=== PATIENT | female | born 1955 | race Two or more races ===

== ENCOUNTER 2020-10-13 11:23 | Inpatient (IN) | payer MEDICARE, OTHER ==
[~2020-10-13] VITALS: Ht 165.1 cm; Wt 49.9 kg
--- NOTE | 2020-10-13 12:25 | NUR ---
IGNITER CAPPER NOTE- PT ARRIVED TO UNIT ON GURNEY FROM ED. ON FACE TO FACE ASSESSMENT PT PRESENTS ALERT ORIENTED TO PERSON PLACE PURPOSE. PT CURRENTLY ON 5150 HOLD DTS. PT WAS "RUNNING IN TRAFFIC" TOX SCREEN POS FOR AMPHETAMINES AND CANNIBIS. PT STATES "I WAS WALKING IN THE ROAD BUT DIDN'T WANT TO KILL MYSELF " PT DENIES SI HI AH VH. VS FOLLOWS - BP- 130/77, HR- 84, RR- 18, T- 97.8, SATS 97% RA, ACCU CHECK BS- 93. SKIN INTACT THROUGHOUT, NO MEDICAL HX . PT DENIES PAST HOSPITALIZATIONS OR MEDICAL ISSUES. LABS ON ARRIVAL FROM ED ARE WNL. PT IS 5'5" AND 110 POUNDS. PERSONAL BELONGINGS INVENTORIES AND STORED IN LOCKER. PT RIGHT HANDBOOK GIVEN ,. UNIT ORIENTATION DONE. PT HAD FLU VACCINE IN JULY. DENIES PNA VACCINE AND REFUSES. LUNCH BROUGHT FOR PT. MD AWARE OF ADMISSION. ORDERS RECEIVED AND COMPLIED WITH.
[2020-10-13 12:45] VITALS: BP 130/77
[2020-10-13] MEDS ORDERED: MAGNESIUM HYDROXIDE 30 ML UDC PO PRN (13:00)
[2020-10-13] MEDS ORDERED: BLOOD SUGAR DIAGNOSTIC 1 EACH STRIP IN ONE (13:00)
[2020-10-13] MEDS ORDERED: MAG HYDROX/AL HYDROX/SIMETH 30 ML UDC PO PRN (13:00)
[2020-10-13] MEDS ORDERED: TEMAZEPAM 7.5 MG CAPSULE PO PRN (13:00)
[2020-10-13 15:59] VITALS: BP 127/75
[2020-10-13] MEDS: ARIPIPRAZOLE 5 MG TABLET PO SCH (17:22)
[2020-10-13 20:28] VITALS: BP 139/75
[2020-10-13] MEDS ORDERED: ARIPIPRAZOLE 5 MG TABLET PO SCH (22:00)
[2020-10-14 07:46] LABS: ALBUMIN 3.2 g/dL (3.4-5.0); BILIRUBIN,TOTAL 0.4 mg/dL (0.2-1.0); CALCIUM, SERUM 9.3 mg/dL (8.5-10.1); CHOLESTEROL 137 mg/dL (<200); CREATININE 0.8 mg/dL (0.6-1.3); HDL CHOLESTEROL 45 mg/dL (40-60); LDL 68 mg/dL (0-99); POTASSIUM 4.5 mmol/L (3.5-5.1); TRIGLYCERIDES 143 mg/dL (30-150)
[2020-10-14 08:00] VITALS: BP 133/80
[2020-10-14] MEDS: ARIPIPRAZOLE 5 MG TABLET PO SCH ×2 (08:24→17:16)
--- NOTE | 2020-10-14 09:00 | NUR ---
RN NOTE- IRRITABLE AND OFFENSIVE AT TIMES. WALKS INTO HALLS NAKED, REDIRECTABLE BUT USES PROFANITY TOWARDS STAFF PT ALERT ORIENTED TO PERSON PLACE PURPOSE, DENIES SI HI AH VH, PO INTAKE GOOD
--- NOTE | 2020-10-14 12:46 | NUR ---
RN NOTE- PT INAPPROPRIATENESS CONTINUES SHE WALKS IN [place] IN UNDERWEAR, SWEARS AT STAFF WHEN SHE DOESN'T IMMEDIATELY GET WHAT SHE ASKS FOR, AND IS GENERALLY UNPLEASANT TO STAFF. REDIRECTED. REORIENTATION.
[2020-10-14 16:00] VITALS: BP 126/74
[2020-10-14] MEDS: DIVALPROEX SODIUM 125 MG CAP.SPRINK PO SCH (17:16)
[2020-10-15 08:00] VITALS: BP 123/78
[2020-10-15] MEDS: ARIPIPRAZOLE 5 MG TABLET PO SCH ×2 (08:39→17:31)
[2020-10-15] MEDS: DIVALPROEX SODIUM 125 MG CAP.SPRINK PO SCH ×3 (08:39→17:35)
[2020-10-15] MEDS: ACETAMINOPHEN 325 MG TABLET PO PRN (10:39)
--- NOTE | 2020-10-15 10:51 | NUR ---
SNI MS: TYLENOL IS GIVEN DUE TO COMPLAIN OF HEADACHE 12/10
[2020-10-15 16:00] VITALS: BP 120/64
[2020-10-15 20:27] VITALS: BP 128/70
[2020-10-16 08:00] VITALS: BP 118/71
[2020-10-16] MEDS: ARIPIPRAZOLE 5 MG TABLET PO SCH ×2 (09:07→16:40)
[2020-10-16] MEDS: ACETAMINOPHEN 325 MG TABLET PO PRN ×2 (09:07→11:32)
[2020-10-16] MEDS: DIVALPROEX SODIUM 125 MG CAP.SPRINK PO SCH ×3 (09:07→16:40)
[2020-10-16] MEDS: clonazePAM 0.5 MG TABLET PO PRN ×2 (09:07→18:12)
--- NOTE | 2020-10-16 09:12 | NUR ---
MARIANCO: SAIMA GIVEN FOR DISROBING IN THE [place] and SCREAMING.
--- NOTE | 2020-10-16 12:10 | NUR ---
Substance Abuse Intervention: SW conducted a substance abuse intervention with the pt due to her methamphetamine use.
--- NOTE | 2020-10-16 13:37 | NUR ---
PC Hearing: Pts [id number] hold was upheld for danger to herself and grave disability.
--- NOTE | 2020-10-16 13:37 | NUR ---
Initial Discharge Plan: Pt is currently homeless. Per pt, she would like to return to [place] where she sleeps on a boat. DIANA will work with the pt and the pts MD regarding appropriate discharge planning. SW will form a safe and proper discharge.
--- NOTE | 2020-10-16 19:30 | NUR ---
GPS RN NOTE, RECEIVED PATIENT AWAKE AND IN BED, NO S/S OR COMPLAINTS OF PAIN AT THIS TIME. PATIENT IS DISPLAYING NO S/S OF APPARENT DISTRESS AT THIS TIME. PATIENT BREATHING IS UNLABORED WITH EQUAL RISE AND FALL OF THE CHEST. PATIENT IS ALERT AND ORIENTED X 3-4 ON ROOM AIR WITH A SPO2 95%. PATIENT IS COMPLIANT WITH MEDICATIONS, ANXIOUS AT TIMES, MANIPULATIVE, VERBALLY ABUSIVE AT TIMES, NEEDS REDIRECTION, AND COOPERATIVE. PATIENT DENIES SUICIDAL AND HOMICIDAL IDEATIONS AT THIS TIME. PATIENT ASSISTED WITH TURNING AND REPOSITIONING Q2HR AND PRN FOR COMFORT AND CIRCULATION. PATIENT HAS NO NEEDS AT THIS TIME. PATIENT EDUCATED ON THE USE OF THE CALL HARTMANN. PATIENT BED SIDE RAILS UP X 2 FOR SAFETY. PATIENT BED IS LOCKED, LOW, WITH BED ALARM ON. WILL CONTINUE TO MONITOR THIS PATIENT Q15 MINUTES WITH THE HELP OF STAFF TO MAINTAIN SAFETY.
[2020-10-16 19:48] VITALS: BP 105/63
[2020-10-17 08:00] VITALS: BP 122/61
[2020-10-17] MEDS: DIVALPROEX SODIUM 125 MG CAP.SPRINK PO SCH ×3 (08:16→16:30)
[2020-10-17] MEDS: ARIPIPRAZOLE 5 MG TABLET PO SCH ×2 (08:57→16:30)
--- NOTE | 2020-10-17 09:00 | NUR ---
RN NOTE- PT IRRITABLE, OPPOSITIONAL AT TIMES, MED COMPLIANT PO INTAKE GOOD, DENYING ALL
[2020-10-17] MEDS: ACETAMINOPHEN 325 MG TABLET PO PRN (11:08)
--- NOTE | 2020-10-17 11:08 | NUR ---
RN NOTE- C/O HEADACHE. TYLENOL 650 MG GIVEN
--- NOTE | 2020-10-17 12:48 | NUR ---
SNF Referral: SW faxed a referral to [facility] ([facility]) with attention to Ephraim and CJ to the fax number: [phone].
[2020-10-17 16:00] VITALS: BP 135/70
--- NOTE | 2020-10-17 19:30 | NUR ---
GPS RN NOTE, RECEIVED PATIENT AWAKE AND IN BED, NO S/S OR COMPLAINTS OF PAIN AT THIS TIME. PATIENT IS DISPLAYING NO S/S OF APPARENT DISTRESS AT THIS TIME. PATIENT BREATHING IS UNLABORED WITH EQUAL RISE AND FALL OF THE CHEST. PATIENT IS ALERT AND ORIENTED X 3-4 ON ROOM AIR WITH A SPO2 95%. PATIENT IS COMPLIANT WITH MEDICATIONS, ANXIOUS AT TIMES, MANIPULATIVE, VERBALLY ABUSIVE AT TIMES, INAPPROPRIATE, NEEDS REDIRECTION, AND COOPERATIVE. PATIENT DENIES SUICIDAL AND HOMICIDAL IDEATIONS AT THIS TIME. PATIENT ASSISTED WITH TURNING AND REPOSITIONING Q2HR AND PRN FOR COMFORT AND CIRCULATION. PATIENT HAS NO NEEDS AT THIS TIME. PATIENT EDUCATED ON THE USE OF THE CALL HARTMANN. PATIENT BED SIDE RAILS UP X 2 FOR SAFETY. PATIENT BED IS LOCKED, LOW, WITH BED ALARM ON. WILL CONTINUE TO MONITOR THIS PATIENT Q15 MINUTES WITH THE HELP OF STAFF TO MAINTAIN SAFETY.
[2020-10-17 20:00] VITALS: BP 124/73
[2020-10-18] MEDS: ACETAMINOPHEN 325 MG TABLET PO PRN (02:29)
--- NOTE | 2020-10-18 02:29 | NUR ---
GPS RN NOTE, PATIENT HAS A COMPLAINT OF HEAD ACHE AT 2 OUT 10 ON THE PAIN SCALE AND IS REQUESTING TYLENOL AT THIS TIME. PATIENT VITAL SIGNS ARE STABLE. GAVE TYLENOL 650MG PO Q6HR PRN ORDERED. WILL REASSESS PAIN AND I WILL CONTINUE TO MONITOR THIS PATIENT.
[2020-10-18 08:00] VITALS: BP 142/51
[2020-10-18] MEDS: ARIPIPRAZOLE 5 MG TABLET PO SCH ×2 (08:17→16:32)
[2020-10-18] MEDS: clonazePAM 0.5 MG TABLET PO PRN ×2 (08:17→16:32)
[2020-10-18] MEDS: DIVALPROEX SODIUM 125 MG CAP.SPRINK PO SCH ×2 (08:18→16:32)
--- NOTE | 2020-10-18 08:20 | NUR ---
RN-CO: SAIMA GIVEN FRO BEING VERBALLY ABUSIVE TO STAFF:
[2020-10-18 16:00] VITALS: BP 129/64
--- NOTE | 2020-10-18 19:30 | NUR ---
GPS RN NOTE, RECEIVED PATIENT AWAKE AND IN BED, NO S/S OR COMPLAINTS OF PAIN AT THIS TIME. PATIENT IS DISPLAYING NO S/S OF APPARENT DISTRESS AT THIS TIME. PATIENT BREATHING IS UNLABORED WITH EQUAL RISE AND FALL OF THE CHEST. PATIENT IS ALERT AND ORIENTED X 3-4 ON ROOM AIR WITH A SPO2 97%. PATIENT IS COMPLIANT WITH MEDICATIONS, ANXIOUS AT TIMES, MANIPULATIVE, VERBALLY ABUSIVE AT TIMES, INAPPROPRIATE, SEXUALLY PREOCCUPIED, NEEDS REDIRECTION, AND COOPERATIVE. PATIENT DENIES SUICIDAL AND HOMICIDAL IDEATIONS AT THIS TIME. PATIENT ASSISTED WITH TURNING AND REPOSITIONING Q2HR AND PRN FOR COMFORT AND CIRCULATION. PATIENT HAS NO NEEDS AT THIS TIME. PATIENT EDUCATED ON THE USE OF THE CALL HARTMANN. PATIENT BED SIDE RAILS UP X 2 FOR SAFETY. PATIENT BED IS LOCKED, LOW, WITH BED ALARM ON. WILL CONTINUE TO MONITOR THIS PATIENT Q15 MINUTES WITH THE HELP OF STAFF TO MAINTAIN SAFETY.
[2020-10-18 19:51] VITALS: BP 117/61
[2020-10-19 08:00] VITALS: BP 104/49
[2020-10-19] MEDS: ARIPIPRAZOLE 5 MG TABLET PO SCH ×2 (09:12→17:51)
[2020-10-19] MEDS: DIVALPROEX SODIUM 125 MG CAP.SPRINK PO SCH ×2 (09:12→17:51)
[2020-10-19 16:00] VITALS: BP 100/72
[2020-10-19 22:01] LABS: BASOPHILS % (AUTO) 0.8 % (0.0-2.0); EOSINOPHILS % (AUTO) 2.1 % (0.0-6.0); HEMATOCRIT 40 % (33-45); HEMOGLOBIN 13.5 g/dL (11.5-14.8); LYMPHOCYTES # (AUTO) 2.4 /CMM (0.8-4.8); MEAN CORPUSCULAR HGB CONC 34 g/dl (31.0-36.0); MEAN CORPUSCULAR VOLUME 90 fL (82-100); MONOCYTES # (AUTO) 0.3 /CMM (0.1-1.30); MONOCYTES % (AUTO) 5.9 % (2.0-12.0); NEUTROPHILS # (AUTO) 2.2 /CMM (1.8-8.9); NEUTROPHILS % (AUTO) 43.2 % (43.0-81.0); PLATELET COUNT (AUTO) 162 /CMM (150-450); RED BLOOD CELL COUNT(AUTO) 4.46 MIL/uL (4.0-5.2); WHITE BLOOD COUNT (AUTO) 5.1 K/uL (4.3-11.0)
[2020-10-19 22:19] VITALS: BP 122/72
[2020-10-19 23:23] LABS: ALBUMIN 3.1 g/dL (3.4-5.0); BILIRUBIN,TOTAL 0.2 mg/dL (0.2-1.0); CALCIUM, SERUM 9.2 mg/dL (8.5-10.1); CREATININE 0.7 mg/dL (0.6-1.3); POTASSIUM 4.3 mmol/L (3.5-5.1); TOTAL PROTEIN, SERUM 6.7 g/dL (6.4-8.2)
[2020-10-20] MEDS: ARIPIPRAZOLE 5 MG TABLET PO SCH ×2 (08:06→16:50)
[2020-10-20] MEDS: DIVALPROEX SODIUM 125 MG CAP.SPRINK PO SCH ×2 (08:06→16:49)
[2020-10-20 09:28] VITALS: BP 129/88
--- NOTE | 2020-10-20 09:31 | NUR ---
SNF Contact: AILIN ([phone]) from [facility] contacted the SW and stated that the pt was accepted to their facility.
--- NOTE | 2020-10-20 11:34 | NUR ---
Individual Intervention: SW met with the pt at bedside and she stated that she did not want to talk to the SW about placement because she already knows that she is going to be discharged to her boat at the [facility]. SW informed her that the pt does not have any way of proving her residence there and that she may need to be stabilized further. Pt refused to acknowledge the SW and asked her to leave. Pt was deemed inappropriate for individual therapy at this time.
[2020-10-20 16:18] VITALS: BP 117/65
[2020-10-20] MEDS: ACETAMINOPHEN 325 MG TABLET PO PRN (17:54)
--- NOTE | 2020-10-20 17:54 | NUR ---
RN NOTE- PT C/O HEADACHE AND GENERALIZED ACHES. TYLENOL 650 MG GIVEN
[2020-10-20 20:04] VITALS: BP 119/71
[2020-10-21 08:00] VITALS: BP 126/72
[2020-10-21] MEDS: DIVALPROEX SODIUM 125 MG CAP.SPRINK PO SCH ×2 (09:24→17:37)
[2020-10-21] MEDS: ARIPIPRAZOLE 5 MG TABLET PO SCH ×2 (09:24→17:37)
[2020-10-21] MEDS: ACETAMINOPHEN 325 MG TABLET PO PRN (13:46)
--- NOTE | 2020-10-21 13:46 | NUR ---
RN NOTE:Medicated with Tylenol 650mg for headache 02/09 will continue to monitor . l
[2020-10-21 16:00] VITALS: BP 118/57
[2020-10-21 20:38] VITALS: BP 99/50
[2020-10-22 08:00] VITALS: BP 133/90
[2020-10-22] MEDS: DIVALPROEX SODIUM 125 MG CAP.SPRINK PO SCH ×2 (09:00→16:02)
[2020-10-22] MEDS: ARIPIPRAZOLE 5 MG TABLET PO SCH ×2 (09:00→16:02)
--- NOTE | 2020-10-22 11:55 | NUR ---
Individual Intervention: SW attempted to conduct an individual intervention in lieu of group therapy due to the lack of involvement in this current patient population. Pt presented her bedroom on her bed partially naked. SW asked the pt to put her clothes on but the pt refused and stated that she will cover herself with her blanket. SW informed her that she is going to be discharged on Tuesday to a SNF and the pt refused to acknowledge that. She stated that she will be returning to [place]. Pt appears to be confused and disorganized. SW deemed this pt inappropriate for individual therapy.
[2020-10-22 16:00] VITALS: BP 148/76
--- NOTE | 2020-10-22 19:30 | NUR ---
GPS RN NOTE, RECEIVED PATIENT AWAKE AND IN BED, NO S/S OR COMPLAINTS OF PAIN AT THIS TIME. PATIENT IS DISPLAYING NO S/S OF APPARENT DISTRESS AT THIS TIME. PATIENT BREATHING IS UNLABORED WITH EQUAL RISE AND FALL OF THE CHEST. PATIENT IS ALERT AND ORIENTED X 3-4 ON ROOM AIR WITH A SPO2 97%. PATIENT IS COMPLIANT WITH MEDICATIONS, ANXIOUS AT TIMES, MANIPULATIVE, VERBALLY ABUSIVE AT TIMES, INAPPROPRIATE, NEEDS REDIRECTION, AND COOPERATIVE. PATIENT DENIES SUICIDAL AND HOMICIDAL IDEATIONS AT THIS TIME. PATIENT ASSISTED WITH TURNING AND REPOSITIONING Q2HR AND PRN FOR COMFORT AND CIRCULATION. PATIENT HAS NO NEEDS AT THIS TIME. PATIENT EDUCATED ON THE USE OF THE CALL HARTMANN. PATIENT BED SIDE RAILS UP X 2 FOR SAFETY. PATIENT BED IS LOCKED, LOW, WITH BED ALARM ON. WILL CONTINUE TO MONITOR THIS PATIENT Q15 MINUTES WITH THE HELP OF STAFF TO MAINTAIN SAFETY.
[2020-10-22] MEDS: ACETAMINOPHEN 325 MG TABLET PO PRN (19:38)
--- NOTE | 2020-10-22 19:38 | NUR ---
GPS RN NOTE, PATIENT HAS A COMPLAINT OF A HEADACHE AT 2 OUT 10 ON THE PAIN SCALE AND IS REQUESTING TYLENOL AT THIS TIME. PATIENT VITAL SIGNS ARE STABLE. GAVE TYLENOL 650MG PO Q6HR PRN ORDERED. WILL REASSESS PAIN AND I WILL CONTINUE TO MONITOR THIS PATIENT.
[2020-10-22 22:52] VITALS: BP 121/52
[2020-10-23] MEDS: ARIPIPRAZOLE 5 MG TABLET PO SCH ×2 (08:37→16:19)
[2020-10-23] MEDS: DIVALPROEX SODIUM 125 MG CAP.SPRINK PO SCH ×2 (08:37→16:19)
[2020-10-23 10:03] VITALS: BP 129/76
[2020-10-23] MEDS: ACETAMINOPHEN 325 MG TABLET PO PRN (13:45)
[2020-10-23] MEDS: clonazePAM 0.5 MG TABLET PO PRN (13:45)
--- NOTE | 2020-10-23 13:47 | NUR ---
RN-CO: KLONOPIN GIVEN FOR RESTLESSNESS.
[2020-10-23 16:00] VITALS: BP 107/55
[2020-10-24 08:00] VITALS: BP 135/52
[2020-10-24] MEDS: ARIPIPRAZOLE 5 MG TABLET PO SCH (09:32)
[2020-10-24] MEDS: DIVALPROEX SODIUM 125 MG CAP.SPRINK PO SCH (09:33)
--- NOTE | 2020-10-24 11:25 | NUR ---
Discharge Note: Pt will be discharged to [facility] ([facility]) located at [address] [place] [id number]; ([phone]). Pt will be transported via [facility] (Trip #[id number]) at 12PM. There was no one to notify to about the pts discharge. Upon discharge, the pt appears to be in a dysphoric mood and presented with a congruent affect. Pt appears to be alert and oriented x4 (time, place, self and situation). Pt denies both suicidal and homicidal ideation as well as auditory and visual hallucinations. Pt appears to be ambulatory with a steady gait. Pt appears to be disheveled and malodorous. Due to the pt being homeless, pt was provided with resources including shelters, food tony, showers, hot meals, mental health clinics, health clinics and substance abuse referrals. SW provided patient with the [phone] [facility] list. SW provided patient with a copy of the [facility] homeless directory which provides information on locations for hot meals, sack lunches, food pantries, and showers. DIANA provided an additional list of mental health clinics: [facility] [place] [address] [place] [address] ([phone]); [facility] [address] [place] [address] ([phone]); a list of medical clinics; [facility] [address], [place]. [place], ; [facility] [address], [place]. DIANA Provided [facility] [address] [place] [address]: ([phone]). Patient was provided with a brief substance abuse intervention and referred to the following substance abuse programs: [facility] Substance Abuse Self-helpline ([phone]); [facility] [address] [place] [address] ([phone]); [facility] [address] [facility] [address] ([phone]); [facility] ([phone]); [facility] ([phone]); [facility] ([phone]); [facility] ([phone]). Pt will continue to be under the care of psychiatrist, Dr. Sheehan, located at [address] [facility], [address] [place] [address]; . Pt will be under the care of dairy lab technician, Dr. Zhang, located at [address] [place] [phone]; . The homeless waiver, choice of vendor form, and multidisciplinary exit care form were done, printed, signed, and given to the patient.
--- NOTE | 2020-10-24 12:14 | NUR ---
RN NOTE- DISCHARGE/ [facility]. PT VS STABLE PT ALERT ORIENTED TO PERSON PLACE TIME PURPOSE. PT DENIES SI HI AH VH. AMBULATORY, SKIN INTACT AT PRESENT. REFUSING FLU AND PNA VACCINES. PT A BIT PARANOID AND GUARDED. BELONGINGS RETURNED TO PT, ID [id number] RETURNED TO HER. REPORT CALLED TO ROBY AT FACILITY AT 1100 AM. AFTERCARE AND TX REVIEWED W PT WELL. VERBALIZED UNDERSTANDING. ASSISTED OFF UNIT BY THIS RN.
== END 2020-10-24 12:14 | DRG 885 ==
LOC: GPS 12:14
PROVIDERS: ADMIT Psychiatry & Neurology Psychiatry; ATTEND Internal Medicine
DX: F25.9 Schizoaffective disorder, unspecified (principal); E43 Unspecified severe protein-calorie malnutrition; F12.129 Cannabis abuse with intoxication, unspecified; F39 Unspecified mood [affective] disorder; F15.10 Other stimulant abuse, uncomplicated; F12.10 Cannabis abuse, uncomplicated; F31.9 Bipolar disorder, unspecified; F29 Unspecified psychosis not due to a substance or known physiological condition; Z73.6 Limitation of activities due to disability; Z91.81 History of falling; R27.8 Other lack of coordination; F41.9 Anxiety disorder, unspecified
CPT/HCPCS: 36415; 80053-TC; 80061-TC; 80164-TC; 82962-TC; 85025-TC